=== PATIENT | female | born 1940 | race Caucasian/White ===

== ENCOUNTER 2016-10-22 14:37 | Emergency (ER) | payer MEDICARE ==
[~2016-10-22] VITALS: Ht 154.9 cm; Wt 61.0 kg
[~2016-10-22 14:37] MED LIST: FLON0.053; MECL25CH PO; METO100T PO; PRAV80 PO
[2016-10-22 14:43] VITALS: BP 116/77; PULSE 66; RESP 19; TEMP 98.4; O2SAT 96
[2016-10-22 14:47] VITALS: BP 116/77; PULSE 62; RESP 19; TEMP 98.4; O2SAT 97
[2016-10-22 14:52] VITALS: BP 116/77; PULSE 66; RESP 19; TEMP 98.4; O2SAT 97
--- NOTE | 2016-10-22 14:58 | PD ---
HPI Chief Complaint: Syncope/Near-Syncope Time Seen by Provider: 14:56 Travel History International Travel<30 days: No Contact w/Intl Traveler<30days: No Traveled to known affect area: No History of Present Illness HPI 76-year-old female with history of hypertension, presents to the ER today because she states that she had 3 episodes of diarrhea today, went out to eat with her family when she felt faint, and sat herself down on the ground, did not lose consciousness. She denies any chest pains, shortness of breath, palpitations, vomiting, or other symptoms. She states that her stools have been dark. Modifying Factors: None Associated Signs & Symptoms: Diarrhea, near syncopal episode Risk Factors: Elderly PFSH Past Medical History Asthma: No Autoimmune Disease: No Cardiovascular Problems: Yes COPD: No Diabetes: No Diminished Hearing: No Hypertension: Yes Tetanus Vaccination: Unknown Past Surgical History Appendectomy: Yes Gynecologic Surgery: Yes (OOPHRECTOMY) Hysterectomy: Yes Other Surgery: Yes (BACK ) Social History Alcohol Use: No Tobacco Use: No Substance Use: No Allergies-Medications (Allergen,Severity, Reaction): Coded Allergies: Codeine (Verified Allergy, Severe, DYSPNEA, 12/19/15) Tylenol (Verified Allergy, Severe, CHEST PAIN & ITCHING, 12/19/15) Adhesives (Verified Allergy, Mild, RASH, REDNESS, 12/19/15) Cortisone (Verified Allergy, Mild, ITCH WITH OINTMENT, 12/19/15) Uncoded Allergies: NOVACAINE (Allergy, Severe, 10/24/10) Reported Meds & Prescriptions Reported Meds & Active Scripts Active Meclizine Hcl (Meclizine HCl) 25 Mg Chw 25 Mg PO Q6H PRN Reported Metoprolol Tartrate 100 mg (Metoprolol Tartrate) 100 Mg Tab 100 Mg PO DAILY Pravastatin Sodium 80 Mg Tab 1 Tab PO DAILY Flonase (Fluticasone Propionate) 0.05 % Naspr 2 Spr NA DAILY 2 SPRAYS EACH NOSTRIL Review of Systems Except as stated in HPI: all other systems reviewed are Neg Physical Exam Narrative GENERAL: Well-developed pleasant elderly white female patient currently in mild distress. Awake and oriented 3. SKIN: Focused skin assessment warm/dry. HEAD: Atraumatic. Normocephalic. EYES: Pupils equal and round. No scleral icterus. No injection or drainage. ENT: No nasal bleeding or discharge. Mucous membranes pink and moist. NECK: Trachea midline. No JVD. CARDIOVASCULAR: Regular rate and rhythm. No murmur appreciated. RESPIRATORY: No accessory muscle use. Clear to auscultation. Breath sounds equal bilaterally. GASTROINTESTINAL: Abdomen soft, moderate epigastric tenderness without guarding or rebound, nondistended. Hepatic and splenic margins not palpable. RECTAL EXAM: No masses or tenderness, stool is brown. Hemoccult negative. MUSCULOSKELETAL: No obvious deformities. No clubbing. No cyanosis. No edema. NEUROLOGICAL: Awake and alert. No obvious cranial nerve deficits. Motor grossly within normal limits. Normal speech. PSYCHIATRIC: Appropriate mood and affect; insight and judgment normal. Data Data Last Documented VS Vital Signs Date Time Temp Pulse Resp B/P Pulse Ox O2 Delivery O2 Flow Rate FiO2 10/22/16 14:52 98.4 66 19 116/77 97 Room Air Orders Electrocardiogram (10/22/16 14:49) Complete Blood Count With Diff (10/22/16 14:49) Comprehensive Metabolic Panel (10/22/16 14:49) Magnesium (Mg) (10/22/16 14:49) Ckmb (Isoenzyme) Profile (10/22/16 14:49) Troponin I (10/22/16 14:49) Act Partial Throm Time (Ptt) (10/22/16 14:49) Prothrombin Time / Inr (Pt) (10/22/16 14:49) Urinalysis - C+S If Indicated (10/22/16 14:49) Chest, Single Ap (10/22/16 14:49) Ecg Monitoring (10/22/16 14:49) Iv Access Insert/Monitor (10/22/16 14:49) Oximetry (10/22/16 14:49) Sodium Chloride 0.9% Flush (Ns Flush) (10/22/16 15:00) Labs Laboratory Tests Test 10/22/16 10/22/16 15:15 16:35 White Blood Count 13.0 TH/MM3 Red Blood Count 4.83 MIL/MM3 Hemoglobin 13.3 GM/DL Hematocrit 41.1 % Mean Corpuscular Volume 85.0 FL Mean Corpuscular Hemoglobin 27.6 PG Mean Corpuscular Hemoglobin 32.4 % Concent Red Cell Distribution Width 14.1 % Platelet Count 239 TH/MM3 Mean Platelet Volume 8.3 FL Neutrophils (%) (Auto) 86.7 % Lymphocytes (%) (Auto) 6.4 % Monocytes (%) (Auto) 5.8 % Eosinophils (%) (Auto) 0.7 % Basophils (%) (Auto) 0.4 % Neutrophils # (Auto) 11.3 TH/MM3 Lymphocytes # (Auto) 0.8 TH/MM3 Monocytes # (Auto) 0.8 TH/MM3 Eosinophils # (Auto) 0.1 TH/MM3 Basophils # (Auto) 0.1 TH/MM3 CBC Comment DIFF FINAL Differential Comment Prothrombin Time 10.3 SEC Prothromb Time International 0.9 RATIO Ratio Activated Partial 22.8 SEC Thromboplast Time Sodium Level 137 MEQ/L Potassium Level 4.6 MEQ/L Chloride Level 104 MEQ/L Carbon Dioxide Level 25.6 MEQ/L Anion Gap 7 MEQ/L Blood Urea Nitrogen 12 MG/DL Creatinine 1.20 MG/DL Estimat Glomerular Filtration 44 ML/MIN Rate Random Glucose 101 MG/DL Calcium Level 8.8 MG/DL Magnesium Level 2.2 MG/DL Total Bilirubin 0.8 MG/DL Aspartate Amino Transf 21 U/L (AST/SGOT) Alanine Aminotransferase 21 U/L (ALT/SGPT) Alkaline Phosphatase 55 U/L Total Creatine Kinase 86 U/L Troponin I LESS THAN 0.02 NG/ML Total Protein 7.1 GM/DL Albumin 3.6 GM/DL Urine Color YELLOW Urine Turbidity CLEAR Urine pH 7.0 Urine Specific [place] 1.023 Urine Protein TRACE mg/dL Urine Glucose (UA) NEG mg/dL Urine Ketones NEG mg/dL Urine Occult Blood NEG Urine Nitrite NEG Urine Bilirubin NEG Urine Urobilinogen 2.0 MG/DL Urine Leukocyte Esterase NEG Urine RBC LESS THAN 1 /hpf Urine WBC 1 /hpf Urine Mucus FEW /lpf Microscopic Urinalysis Comment CULT NOT INDICATED MDM Medical Decision Making Medical Screen Exam Complete: Yes Emergency Medical Condition: Yes Medical Record Reviewed: Yes Interpretation(s) EKG shows NSR, no ST elevation or depression, and no arrhythmias. No significant T-wave inversions. Laboratory Tests Test 10/22/16 10/22/16 15:15 16:35 White Blood Count 13.0 TH/MM3 (4.0-11.0) Neutrophils (%) (Auto) 86.7 % (16.0-70.0) Lymphocytes (%) (Auto) 6.4 % (9.0-44.0) Neutrophils # (Auto) 11.3 TH/MM3 (1.8-7.7) Lymphocytes # (Auto) 0.8 TH/MM3 (1.0-4.8) Activated Partial 22.8 SEC Thromboplast Time (24.3-30.1) Creatinine 1.20 MG/DL (0.50-1.00) Estimat Glomerular Filtration 44 ML/MIN (>89) Rate Troponin I LESS THAN 0.02 NG/ML (0.02-0.05) Urine Mucus FEW /lpf (OCC) Last 24 hours Impressions Chest X-Ray 10/22/16 9419 Signed Impressions: Service Date/Time: Saturday, October 22, 2016 15:00 - CONCLUSION: No evidence of acute cardiopulmonary disease. Tommy Diamond MD Differential Diagnosis Near-syncope, diarrheadehydration versus electrolyte abnormalities versus dysrhythmias versus GI bleed Narrative Course Vital signs are stable in the ER and patient is fairly asymptomatic here. Abdomen is benign. Rectal did not show any signs of acute GI bleeding. Lab work is otherwise unremarkable for significant metabolic issues. She does not have any signs of dysrhythmias on EKG. She has no focal neurological deficits. At this point, she has been up and walking the ER without issues. My plan would be to release her with follow-up to primary care physician. Return for any worsening in symptoms as needed. The plan has been discussed with her and she states understanding. She should try to drink plenty of fluids. [facility] Point of Care Internal Pos. & Neg. Controls: Passed Fecal Specimen Occult Blood: Negative Diagnosis Primary Impression: Near syncope Additional Impression: Mild dehydration Disposition: 01 DISCHARGE HOME Condition: Stable Min Thornton MD Oct 22, 2016 14:58
[2016-10-22] MEDS ORDERED: SODIUM CHLORIDE 0.9% FLUSH 10 ML FLUSH IVF PRN (15:00)
--- NOTE | 2016-10-22 15:06 | RADRPT ---
EXAM DATE/TIME: 10/22/2016 15:00 [facility] COMPARISON: No previous studies available for comparison. INDICATIONS : Shortness of breath. MEDICAL HISTORY : None. SURGICAL HISTORY : None. ENCOUNTER: Initial ACUITY: 2 days PAIN SCORE: 0/10 LOCATION: Bilateral chest FINDINGS: A single view of the chest demonstrates the lungs to be symmetrically aerated without evidence of mas s, infiltrate or effusion. The cardiomediastinal contours are unremarkable. Osseous structures are intact. CONCLUSION: No evidence of acute cardiopulmonary disease. Tommy Diamond MD on October 22, 2016 at 15:03 Board Certified Radiologist. This report was verified electronically.
[2016-10-22 15:44] LABS: AUTOMATED NEUTROPHIL # 11.3 TH/MM3 (1.8-7.7); BASOPHIL # 0.1 TH/MM3 (0-0.2); BASOPHIL % 0.4 % (0.0-2.0); EOSINOPHIL # 0.1 TH/MM3 (0-0.4); EOSINOPHIL % 0.7 % (0.0-4.0); HEMATOCRIT 41.1 % (35.0-46.0); HEMO FLAGS DIFF FINAL; LYMPH % 6.4 % (9.0-44.0); LYMPHOCYTE # 0.8 TH/MM3 (1.0-4.8); MEAN CORPUSCULAR HEMOGLOBIN 27.6 PG (27.0-34.0); MEAN CORPUSCULAR HGB CONC 32.4 % (32.0-36.0); MONO % 5.8 % (0.0-8.0); NEUT % 86.7 % (16.0-70.0); PLATELET COUNT 239 TH/MM3 (150-450); RED BLOOD COUNT 4.83 MIL/MM3 (4.00-5.30); RED CELL DISTRIBUTION WIDTH 14.1 % (11.6-17.2)
[2016-10-22 16:04] LABS: APTT (PATIENT) 22.8 SEC (24.3-30.1); INTERNATIONAL NORMALIZED RATIO 0.9 RATIO; PROTHROMBIN TIME - PATIENT 10.3 SEC (9.8-11.6)
[2016-10-22 16:08] LABS: ALT (GPT) 21 U/L (10-53)
[2016-10-22 16:26] LABS: ALKALINE PHOSPHATASE 55 U/L (45-117); ANION GAP 7 MEQ/L (5-15); AST (GOT) 21 U/L (15-37); BICARBONATE 25.6 MEQ/L (21.0-32.0); BLOOD UREA NITROGEN 12 MG/DL (7-18); CHLORIDE 104 MEQ/L (98-107); CREATINE KINASE 86 U/L (26-192); GLOMERULAR FILTRATION RATE 44 ML/MIN (>89); MAGNESIUM 2.2 MG/DL (1.5-2.5); POTASSIUM 4.6 MEQ/L (3.5-5.1); SODIUM (NA) 137 MEQ/L (136-145); TOTAL BILIRUBIN ADULT 0.8 MG/DL (0.2-1.0)
[2016-10-22 17:05] LABS: BLOOD, URINE NEG (NEG); COMMENT (UR) CULT NOT INDICATED; CULTURE IF INDICATED CULT NOT INDICATED; GLUCOSE,URINE NEG (NEG); KETONE, URINE NEG (NEG); MUCUS URINE FEW /lpf (OCC); NITRITE,URINE NEG (NEG); URINE COLOR YELLOW (YELLW/STRAW)
[2016-10-22 18:10] VITALS: BP 126/59
--- NOTE | 2016-10-23 11:30 | EKG ---
Date Performed: 10/22/2016 Time Performed: 15:22:29 PTAGE: 76 years EKG: Sinus rhythm Since previous tracing, no significant change noted NORMAL ECG PREVIOUS TRACING : 12/19/2015 12.10 DOCTOR: David Rousseau Interpretating Date/Time 10/23/2016 11:29:15
== END 2016-10-22 18:13 | disposition home or self-care (01) ==
LOC: NEPC 14:37
DX: R55 Syncope and collapse (principal); E86.0 Dehydration
CPT/HCPCS: 71010; 80053; 81001; 82550; 83735; 84484; 85025; 85610; 85730; 93005; 99284

== ENCOUNTER 2017-05-18 08:05 | Emergency (ER) | payer MEDICARE ==
[~2017-05-18] VITALS: Ht 154.9 cm; Wt 58.0 kg
[2017-05-18 08:06] VITALS: BP 172/72; PULSE 86; RESP 16; TEMP 99.1; O2SAT 98
[2017-05-18] MEDS ORDERED: METO100T PO (08:26)
[2017-05-18] MEDS ORDERED: PRAV80TA2 PO (08:26)
[2017-05-18] MEDS ORDERED: FLUT1SPR5 EACH NARE (08:26)
[2017-05-18] MEDS ORDERED: AMOX500C PO (08:42)
--- NOTE | 2017-05-18 08:42 | PD ---
HPI Chief Complaint: ENT Complaint Time Seen by Provider: 08:24 Travel History International Travel<30 days: No Contact w/Intl Traveler<30days: No Traveled to known affect area: No History of Present Illness HPI 76-year-old female presents to emergency Department with complaint of right ear pain that started yesterday. Reports nasal congestion and occasional cough. Denies chest pain or shortness of breath. Denies fever, sore throat, left ear pain. Symptoms are mild in severity. No known aggravating factors. Has been taking ibuprofen for pain relief. Has been using nasal spray. Reports seasonal allergies. History of hypertension and high cholesterol. Dr. Vitale is primary care provider. Allergies to Novocain, acetaminophen, adhesive, codeine, cortisone. Has no other medical complaints. No other modifying factors or associated signs and symptoms. PFSH Past Medical History Asthma: No Autoimmune Disease: No Cardiovascular Problems: Yes High Cholesterol: Yes COPD: No Diabetes: No Diminished Hearing: No Hypertension: Yes Tetanus Vaccination: Unknown Influenza Vaccination: No ?: Not Menopausal: Yes Past Surgical History Appendectomy: Yes Gynecologic Surgery: Yes (OOPHRECTOMY) Hysterectomy: Yes Tonsillectomy: Yes Other Surgery: Yes (BACK ) Social History Alcohol Use: No Tobacco Use: No Substance Use: No Allergies-Medications (Allergen,Severity, Reaction): Coded Allergies: acetaminophen (Unverified Allergy, Severe, CHEST PAIN & ITCHING, 05/18/17) codeine (Unverified Allergy, Severe, DYSPNEA, 05/18/17) adhesive (Unverified Allergy, Mild, RASH, REDNESS, 05/18/17) cortisone (Unverified Allergy, Mild, ITCH WITH OINTMENT, 05/18/17) Uncoded Allergies: NOVACAINE (Allergy, Severe, 10/24/10) Reported Meds & Prescriptions Reported Meds & Active Scripts Active Amoxicillin 500 Mg Cap 500 Mg PO BID 10 Days Reported Pravastatin 80 Mg Tab 80 Mg PO HS Metoprolol Tartrate 100 Mg Tab 100 Mg PO DAILY Flonase Nasal [place] (Fluticasone Nasal [place]) 50 Mcg/Act [place] 50 Mcg EACH NARE HS Review of Systems Except as stated in HPI: all other systems reviewed are Neg Physical Exam Narrative GENERAL: Well-nourished, well-developed elderly, female patient, in no acute distress; afebrile, nontoxic-appearing SKIN: Warm and dry. No rash. HEAD: Atraumatic. Normocephalic. EYES: Pupils equal and round. No scleral icterus. No injection or drainage. EARS: Bilateral pinnae and external canals appear within normal limits. Right tympanic membrane with erythema, loss of landmarks, and with dullness; without perforation. ENT: Mucosa pink and moist. Oral Pharynx without erythema; without edema or exudates. No uvular edema. No uvular, palatal, or tonsillar deviation. Airway patent. NECK: Trachea midline. No lymphadenopathy. CARDIOVASCULAR: Regular rate. RESPIRATORY: No accessory muscle use. GASTROINTESTINAL: Rounded. MUSCULOSKELETAL: No obvious deformities. No clubbing. No cyanosis. No edema. NEUROLOGICAL: Awake and alert. Oriented 3. No obvious cranial nerve deficits. Motor grossly within normal limits. Normal speech. Moves all extremities. 5/5 strength to all extremities. PSYCHIATRIC: Appropriate mood and affect; insight and judgment normal. Data Data Last Documented VS Vital Signs Date Time Temp Pulse Resp B/P (MAP) Pulse Ox O2 Delivery O2 Flow Rate FiO2 05/18/17 08:06 99.1 86 16 172/72 (105) 98 Room Air Orders Orders Ed Discharge Order (05/18/17 08:43) MDM Medical Decision Making Medical Screen Exam Complete: Yes Emergency Medical Condition: Yes Medical Record Reviewed: Yes Differential Diagnosis Foreign body, cerumen impaction, otitis media, otitis externa Narrative Course 76-year-old female physical exam consistent with right otitis media. Patient is afebrile and nontoxic-appearing. Denies fevers, vomiting. Amoxicillin prescribed for home. Instructed patient to follow up with primary care provider. Patient verbalizes understanding and agreement with treatment plan. Patient is medically cleared and stable for discharge. Discussed reasons to return to the emergency department. Patient agrees with treatment plan. The patients vital signs are stable and the patient is stable for outpatient follow- up and treatment. Patient discharged home, stable and in no acute distress. Diagnosis Primary Impression: Otitis media, right Qualified Codes: H66.91 - Otitis media, unspecified, right ear Referrals: Primary Care Physician Patient Instructions: Cold Symptoms (ED), General Instructions, Serous Otitis Media (ED) Additional Instructions: Take antibiotics as prescribed and complete full course Ibuprofen or Tylenol as directed and as needed to reduce pain and fever [id number] antihistamines or decongestants as directed and as needed for symptom management Avoid getting water in the ears Do not put anything in the ears; including Q-tips Follow-up with primary care provider Return to the emergency department immediately with worsening of symptoms Med/Other Pt SpecificInfo: Prescription(s) given Scripts Amoxicillin (Amoxicillin) 500 Mg Cap 500 MG PO BID for Infection for 10 Days, #20 CAP 0 Refills Prov: Rosaline Enamorado 05/18/17 Disposition: 01 DISCHARGE HOME Condition: Stable Rosaline Enamorado May 18, 2017 08:42
== END 2017-05-18 09:10 | disposition home or self-care (01) ==
LOC: NEPD 08:05
DX: H66.91 Otitis media, unspecified, right ear (principal); E78.00 Pure hypercholesterolemia, unspecified; I10 Essential (primary) hypertension
CPT/HCPCS: 99283